=== PATIENT | female | born 1995 | race American Indian/Alaskan Native ===

== ENCOUNTER 2018-09-26 14:12 | Emergency (ER) | payer MEDICAID ==
--- NOTE | 2018-09-26 14:59 | Emergency Department Report ---
Blank Doc - Documentation Documentation: Patient here report brown red nucus. couhing alot. Started 2wweks ago with cold. Couh started 1 wee ago. reports sob. Cp with coughing. OTC meds taking H/o Pneumonia Lungs clear, Normal WOB A/P Cough sob CP ith coughing CXR
[2018-09-26 15:14] VITALS: BP 113/64
[2018-09-26] MEDS ORDERED: DELTASONE PO ONE (17:33)
--- NOTE | 2018-09-26 17:42 | Emergency Department Report ---
Minor Respiratory - HPI Chief Complaint: Upper Respiratory Infection Stated Complaint: MARION/COUGH UP MUCUS Time Seen by Provider: 09/26/18 14:55 Duration: 1.5 weeks Pain Location: Chest Minor Respiratory: Yes Rhinorrhea, Yes Able to Tolerate Fluids, Yes Cough (blood streaked sputum this morning), No Sore Throat, No Ear Pain, No Sick Contacts, No Hemoptysis, No Chest Pain, No Shortness of Breath, No Fever Other History: patient is a smoker ED Review of Systems ROS: Stated complaint: MARION/COUGH UP MUCUS Other details as noted in HPI Comment: All other systems reviewed and negative ED Past Medical Hx - Past Medical History Previous Medical History?: No - Surgical History Past Surgical History?: No - Social History Smoking Status: Current Every Day Smoker Substance Use Type: Alcohol - Medications Home Medications: Home Medications Medication Instructions Recorded Confirmed Last Taken Type Ibuprofen [Motrin] 600 mg PO Q8H PRN #20 tablet 09/18/18 Unknown Rx methOCARBAMOL [Robaxin TAB] 500 mg PO Q6H PRN #15 tablet 09/18/18 Unknown Rx traMADol [Ultram] 50 mg PO Q6HR PRN #10 tablet 09/18/18 Unknown Rx ALBUTEROL Inhaler(NF) [VENTOLIN 2 puff IH Q4HRT PRN #1 inha 09/26/18 Unknown Rx Inhaler(NF)] Azithromycin [Zithromax Z-ALEX] 250 mg PO DAILY #6 tablet 09/26/18 Unknown Rx Benzonatate [Tessalon Perles] 100 mg PO Q8HR #10 capsule 09/26/18 Unknown Rx predniSONE [Deltasone] 20 mg PO QDAY #5 tab 09/26/18 Unknown Rx Minor Respiratory Exam - Exam General: Vital signs noted. No distress. Alert and acting appropriately. HEENT: Yes Moist Mucous Membranes, No Pharyngeal Erythema, No Pharyngeal Exudates, No Rhinorrhea, No Conjuctival Injection, No Frontal Tenderness, No Maxillary Tenderness Ear: Neither TM Bulge, Neither TM Erythema, Neither EAC Pain, Neither EAC Discharge Neck: Yes Supple, No Adenopathy Lungs: Yes Good Air Exchange, Yes Cough, No Wheezes, No Ronchi, No Stridor, No L abored Respirations, No Retractions, No Use of Accessory Muscles, No Other Abnormal Lung Sounds Heart: Yes Regular, No Murmur Abdomen: Yes Normal Bowel Sounds, No Tenderness, No Peritoneal Signs Skin: No Rash, No Edema Neurologic: Alert and oriented, no deficits. Musculoskeletal: Unremarkable. ED Course Vital Signs 09/26/18 15:13 Temperature 98.2 F Pulse Rate 84 Respiratory 20 Rate Blood Pressure 113/64 O2 Sat by Pulse 97 Oximetry ED Medical Decision Making - Radiology Data CXR WNL - Medical Decision Making Patient is a 23-year-old female has past history of smoking who is presenting with a cough for over a week with some blood streaks. Patient likely with acute bronchitis. Patient to be started on meds for symptomatic relief will be discharged home. Critical care attestation.: If time is entered above; I have spent that time in minutes in the direct care of this critically ill patient, excluding procedure time. ED Disposition Clinical Impression: Acute bronchitis Qualifiers: Bronchitis organism: unspecified organism Qualified Code(s): J20.9 - Acute bronchitis, unspecified Disposition: DC-01 TO HOME OR SELFCARE Is pt being admited?: No Does the pt Need Aspirin: No Condition: Stable Instructions: Acute Bronchitis (ED) Referrals: MARTIN COTTO MD [Staff Physician] - 3-5 Days Time of Disposition: 17:41
--- NOTE | 2018-09-26 17:55 | XRay Report ---
PROCEDURE: XR CHEST ROUTINE 2V TECHNIQUE: Chest radiograph , PA and lateral views. HISTORY: productive cough COMPARISONS: None . FINDINGS: Heart: Normal. Mediastinum/Vessels: Normal. Lungs/Pleural space: Normal. Bony thorax: No acute osseous abnormality. Life support devices: None. IMPRESSION: No acute cardiopulmonary abnormality. This document is electronically signed by Kerline Hollins MD., September 26 2018 05:53:39 PM ET
== END 2018-09-26 17:58 | disposition home or self-care (01) ==
LOC: ED 14:12
DX: J20.9 Acute bronchitis, unspecified (principal); F17.200 Nicotine dependence, unspecified, uncomplicated
CPT/HCPCS: 71046; 99283; J7512

== ENCOUNTER 2018-10-21 22:16 | Emergency (ER) | payer MEDICAID ==
[2018-10-21 23:57] LABS: Basophils # (Auto) 0.1 K/mm3 (0.0-0.1); Basophils % (Auto) 0.6 % (0.0-1.8); Eosinophils # (Auto) 0.1 K/mm3 (0.0-0.4); Eosinophils % (Auto) 1.6 % (0.0-4.3); Hematocrit 37.4 % (30.3-42.9); Hemoglobin 12.5 gm/dl (10.1-14.3); Lymphocytes # (Auto) 3.6 K/mm3 (1.2-5.4); Mean Corpuscular HGB Conc 33 % (30-34); Mean Corpuscular Volume 95 fl (79-97); Monocytes # (Auto) 0.8 K/mm3 (0.0-0.8); Monocytes % (Auto) 9.8 % (0.0-7.3); Platelet Count 142 K/mm3 (140-440); Red Blood Count 3.94 M/mm3 (3.65-5.03); Red Cell Distribution Width 13.8 % (13.2-15.2)
[2018-10-22 00:19] LABS: BUN/Creatinine Ratio 10; Blood Urea Nitrogen 7 mg/dL (7-17); Calcium 9.1 mg/dL (8.4-10.2); Hemolysis Index 10
--- NOTE | 2018-10-22 00:53 | XRay Report ---
PROCEDURE: XR CHEST ROUTINE 2V TECHNIQUE: PA and lateral views of the chest were obtained. HISTORY: coughin up blood COMPARISONS: 09/26/2018 FINDINGS: The heart size and mediastinum appear normal. The lungs are clear. Pleural fluid is not seen. The bon es and soft tissues appear normal. IMPRESSION: Within normal limits.. This document is electronically signed by Fred Monroy MD., October 22 2018 12:51:21 AM ET
[2018-10-22 01:00] LABS: INR 0.91 (0.87-1.13)
--- NOTE | 2018-10-22 01:09 | Emergency Department Report ---
ED Shortness of Breath HPI - General Chief Complaint: Dyspnea/Respdistress Stated Complaint: MARION CHEST PAIN MUCUS SURGERY 2 DAYS AGO Time Seen by Provider: 10/22/18 00:09 Source: patient Mode of arrival: Ambulatory Limitations: No Limitations - History of Present Illness Initial Comments: 23-year-old female with a past medical history of anxiety, depression, and recent uterine fibroid and polyp removal 2 days ago at [facility] presents to the hospital complaining of coughing up blood and shortness of breath since discharge. Symptoms have grossly worsened. She complains of sternal chest pain with deep inspiration. She has had some mild intermittent wheezing. History of wheezing in the past with previous pneumonia. Patient has a past medical history of pneumonia versus concern that her symptoms might be due to reoccurrence. She denies fever, travel, calf tenderness, leg edema, history of PE/DVT, or anticoagulant use. 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 - Related Data Previous Rx's Medication Instructions Recorded Last Taken Type Ibuprofen [Motrin] 600 mg PO Q8H PRN #20 tablet 09/18/18 Unknown Rx methOCARBAMOL [Robaxin TAB] 500 mg PO Q6H PRN #15 tablet 09/18/18 Unknown Rx Azithromycin [Zithromax Z-ALEX] 250 mg PO DAILY #6 tablet 09/26/18 Unknown Rx ALBUTEROL Inhaler(NF) [VENTOLIN 2 puff IH Q4HRT PRN #1 inha 10/22/18 Unknown Rx Inhaler(NF)] Azithromycin [Zithromax Z-ALEX] 1 dose PO DAILY 5 Days tab 10/22/18 Unknown Rx Benzonatate [Tessalon Perles] 100 mg PO Q8HR #20 capsule 10/22/18 Unknown Rx predniSONE [Deltasone] 40 mg PO QDAY #5 tab 10/22/18 Unknown Rx traMADol [Ultram 50 MG tab] 50 mg PO Q6HR PRN #14 tablet 10/22/18 Unknown Rx Allergies Allergy/AdvReac Type Severity Reaction Status Date / Time No Known Allergies Allergy Unverified 09/18/18 08:37 ED Review of Systems ROS: Stated complaint: MARION CHEST PAIN MUCUS SURGERY 2 DAYS AGO Other details as noted in HPI Comment: All other systems reviewed and negative ED Past Medical Hx - Past Medical History Previous Medical History?: Yes Hx Psychiatric Treatment: Yes (Anxiety, Depression) Additional medical history: Pneumonia - Surgical History Past Surgical History?: Yes Additional Surgical History: uterine Fibroid and polypectomy - Social History Smoking Status: Current Every Day Smoker Substance Use Type: None - Medications Home Medications: Home Medications Medication Instructions Recorded Confirmed Last Taken Type Ibuprofen [Motrin] 600 mg PO Q8H PRN #20 tablet 09/18/18 Unknown Rx methOCARBAMOL [Robaxin TAB] 500 mg PO Q6H PRN #15 tablet 09/18/18 Unknown Rx Azithromycin [Zithromax Z-ALEX] 250 mg PO DAILY #6 tablet 09/26/18 Unknown Rx ALBUTEROL Inhaler(NF) [VENTOLIN 2 puff IH Q4HRT PRN #1 inha 10/22/18 Unknown Rx Inhaler(NF)] Azithromycin [Zithromax Z-ALEX] 1 dose PO DAILY 5 Days tab 10/22/18 Unknown Rx Benzonatate [Tessalon Perles] 100 mg PO Q8HR #20 capsule 10/22/18 Unknown Rx predniSONE [Deltasone] 40 mg PO QDAY #5 tab 10/22/18 Unknown Rx traMADol [Ultram 50 MG tab] 50 mg PO Q6HR PRN #14 tablet 10/22/18 Unknown Rx ED Physical Exam - General Limitations: No Limitations - Other Other exam information: General: No limitations, patient is alert in no acute distress Head exam: Atraumatic, normocephalic Eyes exam: Normal appearance ENT: Moist mucous membrane, normal oropharynx Neck exam: Normal inspection, full range of motion, no meningismus nontender Respiratory exam: Clear to auscultation bilateral, no wheezes, rales, crackles Cardiovascular: Normal rate and rhythm, normal heart sounds Abdomen: Soft, nondistended, and nontender, with normal bowel sounds, no rebound, or guarding Extremity: Full range of motion normal inspection no deformity, no calf tenderness or edema Back: Normal Inspection, full range of motion, no tenderness Neurologic: Alert, oriented x3, cranial nerves intact, no motor or sensory deficit Psychiatric: normal affect, normal mood Skin: Warm, dry, intact ED Course Vital Signs 10/21/18 10/22/18 23:34 00:58 Temperature 98.7 F 98.5 F Pulse Rate 69 68 Respiratory 18 17 Rate Blood Pressure 102/58 109/62 [Left] O2 Sat by Pulse 100 99 Oximetry ED Medical Decision Making - Lab Data Result diagrams: 10/21/18 23:46 10/21/18 23:46 Lab Results 10/21/18 10/21/18 10/21/18 Range/Units 23:46 23:46 23:46 WBC 8.0 (4.5-11.0) K/mm3 RBC 3.94 (3.65-5.03) M/mm3 Hgb 12.5 (10.1-14.3) gm/dl Hct 37.4 (30.3-42.9) % MCV 95 (79-97) fl MCH 32 (28-32) pg MCHC 33 (30-34) % RDW 13.8 (13.2-15.2) % Plt Count 142 (140-440) K/mm3 Lymph % (Auto) 45.0 H (13.4-35.0) % [place] % (Auto) 9.8 H (0.0-7.3) % Eos % (Auto) 1.6 (0.0-4.3) % Baso % (Auto) 0.6 (0.0-1.8) % Lymph # 3.6 (1.2-5.4) K/mm3 [place] # 0.8 (0.0-0.8) K/mm3 Eos # 0.1 (0.0-0.4) K/mm3 Baso # 0.1 (0.0-0.1) K/mm3 Seg Neutrophils % 43.0 (40.0-70.0) % Seg Neutrophils # 3.4 (1.8-7.7) K/mm3 PT (12.2-14.9) Sec. INR (0.87-1.13) APTT (24.2-36.6) Sec. Sodium 140 (137-145) mmol/L Potassium 3.8 (3.6-5.0) mmol/L Chloride 102.8 (98-107) mmol/L Carbon Dioxide 25 (22-30) mmol/L Anion Gap 16 mmol/L BUN 7 (7-17) mg/dL Creatinine 0.7 (0.7-1.2) mg/dL Estimated GFR > 60 ml/min BUN/Creatinine Ratio 10 % Glucose 89 (65-100) mg/dL Calcium 9.1 (8.4-10.2) mg/dL HCG, Qual Negative (Negative) 10/22/18 Range/Units 00:24 WBC (4.5-11.0) K/mm3 RBC (3.65-5.03) M/mm3 Hgb (10.1-14.3) gm/dl Hct (30.3-42.9) % MCV (79-97) fl MCH (28-32) pg MCHC (30-34) % RDW (13.2-15.2) % Plt Count (140-440) K/mm3 Lymph % (Auto) (13.4-35.0) % [place] % (Auto) (0.0-7.3) % Eos % (Auto) (0.0-4.3) % Baso % (Auto) (0.0-1.8) % Lymph # (1.2-5.4) K/mm3 [place] # (0.0-0.8) K/mm3 Eos # (0.0-0.4) K/mm3 Baso # (0.0-0.1) K/mm3 Seg Neutrophils % (40.0-70.0) % Seg Neutrophils # (1.8-7.7) K/mm3 PT 12.8 (12.2-14.9) Sec. INR 0.91 (0.87-1.13) APTT 28.0 (24.2-36.6) Sec. Sodium (137-145) mmol/L Potassium (3.6-5.0) mmol/L Chloride (98-107) mmol/L Carbon Dioxide (22-30) mmol/L Anion Gap mmol/L BUN (7-17) mg/dL Creatinine (0.7-1.2) mg/dL Estimated GFR ml/min BUN/Creatinine Ratio % Glucose (65-100) mg/dL Calcium (8.4-10.2) mg/dL HCG, Qual (Negative) - Radiology Data Radiology results: report reviewed PROCEDURE: XR CHEST ROUTINE 2V TECHNIQUE: PA and lateral views of the chest were obtained. HISTORY: coughin up blood COMPARISONS: 09/26/2018 FINDINGS: The heart size and mediastinum appear normal. The lungs are clear. Pleural fluid is not seen. The bones and soft tissues appear normal. IMPRESSION: Within normal limits.. PROCEDURE: CT ANGIO CHEST TECHNIQUE: Computerized tomographic angiography of the chest was performed after the IV injection of iodinated nonionic contrast including image processing. The image data was postprocessed using 2-dimensional multiplanar reformatted (MPR) and 3-dimensional (MIP and/or volume rendered) techniques. Automated exposure control, adjustment of mA and/or kV according to patient size, or iterative reconstruction dose optimization techniques were utilized. HISTORY: coughing up blood, pleuritic chest pain,sob COMPARISONS: None . FINDINGS: Heart and pericardium: Normal. Thoracic aorta: Normal. Pulmonary vasculature: There is no evidence of pulmonary arterial emboli. Lymph nodes: No enlarged thoracic lymph nodes. Lungs: Minimal scattered reactive lung findings in the hilar regions bilaterally. A bronchitis pattern is suspected. No evidence of a consolidation, effusion or pneumothorax. The central airway is patent. Pleural space: No effusion, thickening, or pneumothorax. Musculoskeletal structures: No significant abnormality. Upper abdominal structures: No significant abnormality. IMPRESSION: Scattered reactive lung findings in the hilar regions bilaterally, bronchitis pattern is suspected. The remainder of the study is normal. There is no evidence of pulmonary arterial emboli . - Medical Decision Making no Pulmonary embolism + findings suggestive of bronchitis will be d/flaquita on meds for bronchitis. f/u encouraged - Differential Diagnosis bronchitis, pneumonia, pulmonary embolism, coagulopathy Critical Care Time: No Critical care attestation.: If time is entered above; I have spent that time in minutes in the direct care of this critically ill patient, excluding procedure time. ED Disposition Clinical Impression: Acute bronchitis Disposition: DC-01 TO HOME OR SELFCARE Is pt being admited?: No Does the pt Need Aspirin: No Condition: Stable Instructions: Acute Bronchitis (ED) Additional Instructions: Take the medication as prescribed. Follow up with your doctor or the clinic/doctor provided. Return if symptoms worsen as indicated by your discharge instructions Prescriptions: predniSONE [Deltasone] 40 mg PO QDAY #5 tab Benzonatate [Tessalon Perles] 100 mg PO Q8HR #20 capsule traMADol [Ultram 50 MG tab] 50 mg PO Q6HR PRN #14 tablet PRN Reason: Pain ALBUTEROL Inhaler(NF) [VENTOLIN Inhaler(NF)] 2 puff IH Q4HRT PRN #1 inha PRN Reason: wheeze Azithromycin [Zithromax Z-ALEX] 1 dose PO DAILY 5 Days tab Referrals: KELVIN DONALD MD [Primary Care Provider] - 3-5 Days Time of Disposition: 02:35
--- NOTE | 2018-10-22 02:15 | Cat Scan Report ---
PROCEDURE: CT ANGIO CHEST TECHNIQUE: Computerized tomographic angiography of the chest was performed after the IV injection of iodinated nonionic contrast including image processing. The image data was postprocessed using 2-di mensional multiplanar reformatted (MPR) and 3-dimensional (MIP and/or volume rendered) techniques. Au tomated exposure control, adjustment of mA and/or kV according to patient size, or iterative reconstr uction dose optimization techniques were utilized. HISTORY: coughing up blood, pleuritic chest pain,sob COMPARISONS: None . FINDINGS: Heart and pericardium: Normal. Thoracic aorta: Normal. Pulmonary vasculature: There is no evidence of pulmonary arterial emboli. Lymph nodes: No enlarged thoracic lymph nodes. Lungs: Minimal scattered reactive lung findings in the hilar regions bilaterally. A bronchitis patte rn is suspected. No evidence of a consolidation, effusion or pneumothorax. The central airway is cortez nt. Pleural space: No effusion, thickening, or pneumothorax. Musculoskeletal structures: No significant abnormality. Upper abdominal structures: No significant abnormality. IMPRESSION: Scattered reactive lung findings in the hilar regions bilaterally, bronchitis pattern is suspected. The remainder of the study is normal. There is no evidence of pulmonary arterial emboli . This document is electronically signed by Silva Chaidez DO., October 22 2018 02:14:03 AM ET
[2018-10-22 02:54] VITALS: BP 108/59
== END 2018-10-22 02:51 | disposition home or self-care (01) ==
LOC: ED 22:16
DX: J20.9 Acute bronchitis, unspecified (principal); F41.9 Anxiety disorder, unspecified; F32.9 Major depressive disorder, single episode, unspecified; F17.200 Nicotine dependence, unspecified, uncomplicated
CPT/HCPCS: 36415; 71046; 71275; 80048; 84703; 85025; 85610; 85730; 99284; Q9967